=== PATIENT | female | born 1985 | race Hispanic/Latino ===

== ENCOUNTER 2021-03-18 02:06 | Emergency (ER) | payer SELFPAY | END 2021-03-18 07:00 | LOC: ED 02:06 | DX: R10.9 Unspecified abdominal pain (principal); Z53.21 Procedure and treatment not carried out due to patient leaving prior to being seen by health care provider ==

== ENCOUNTER 2021-08-21 19:34 | Emergency (ER) | payer SELFPAY ==
[2021-08-21 20:25] VITALS: BP 126/52
[2021-08-21 21:07] LABS: Bilirubin,Urine NEG (Negative); Blood,Urine MOD (Negative); Color,Urine Yellow (Yellow); Mucus,Urine FEW /HPF; Urobilinogen,Urine < 2.0 mg/dL (<2.0)
[2021-08-21 21:31] LABS: Basophils # (Auto) 0.1 K/mm3 (0.0-0.1); Basophils % (Auto) 1.1 % (0.0-1.8); Eosinophils # (Auto) 0.1 K/mm3 (0.0-0.4); Eosinophils % (Auto) 1.6 % (0.0-4.3); Hematocrit 40.3 % (30.3-42.9); Hemoglobin 13.3 gm/dl (10.1-14.3); Lymphocytes # (Auto) 3.3 K/mm3 (1.2-5.4); Lymphocytes % (Auto) 48.6 % (13.4-35.0); Mean Corpuscular HGB Conc 33 % (30-34); Mean Corpuscular Volume 84 fl (79-97); Monocytes # (Auto) 0.4 K/mm3 (0.0-0.8); Monocytes % (Auto) 5.8 % (0.0-7.3); Platelet Count 369 K/mm3 (140-440); Red Blood Count 4.79 M/mm3 (3.65-5.03); Red Cell Distribution Width 13.1 % (13.2-15.2)
[2021-08-21 21:47] LABS: Alanine Aminotransferase 37 units/L (7-56); Albumin 4.3 g/dL (3.9-5); BUN/Creatinine Ratio 14; Blood Urea Nitrogen 11 mg/dL (7-17); Calcium 9.7 mg/dL (8.4-10.2); Hemolysis Index 21
[2021-08-21] MEDS ORDERED: SODIUM CHLORIDE 0.9% 1000 ML 1,000 ML IV ONE (22:28)
--- NOTE | 2021-08-21 23:03 | XRay Report ---
XR abdomen 1V ap INDICATION / CLINICAL INFORMATION: constipation. COMPARISON: None available. TECHNIQUE: One view supine AP abdomen. FINDINGS: TUBES / LINES: None. BOWEL GAS PATTERN: No significant abnormality. FREE AIR / EXTRALUMINAL GAS: None seen. ADDITIONAL FINDINGS: Minimal scoliosis possibly positional apex to the right centered at L3. IMPRESSION: 1. No significant abnormality. Signer Name: Jose Pineda II, MD Signed: 08/21/2021 10:59 PM Workstation Name: [id number]
[2021-08-21] MEDS ORDERED: POTASSIUM CHLORIDE ER 20 MEQ TAB PO ONE (23:21)
[2021-08-21] MEDS ORDERED: FAMOTIDINE 20 MG TAB PO ONE (23:22)
[2021-08-21] MEDS ORDERED: ONDANSETRON 4 MG ODT TAB PO ONE (23:22)
--- NOTE | 2021-08-21 23:31 | Emergency Department Report ---
ED Abdominal Pain HPI - General Chief Complaint: Abdominal Pain Stated Complaint: ABD PAIN Source: patient Mode of arrival: Ambulatory Limitations: No Limitations - History of Present Illness Initial Comments: Patient is a 35-year-old female with no past medical history presents to the ED with complaint of acute onset persistent diffuse abdominal pain intermittently for the last 2 days. Patient states that she has not had a bowel movement about 3 or 4 days and that upon arrival in the ED she did have a bowel movement but still feels bloated, as if there is more abdominal gas in her abdomen. Patient denies dizziness, syncope, fever, chills, dysuria, urinary johana quency and urgency, chest pain or shortness of breath, cough, vaginal bleeding or vaginal discharge. MD Complaint: abdominal pain, other (Constipation) -: Sudden, hour(s) (12) Location: diffuse Radiation: none Migration to: no migration Severity: mild Severity scale (0 -10): 1 Quality: dull Consistency: intermittent Improves With: nothing Worsens With: nothing Associated Symptoms: denies other symptoms, nausea. denies: vomiting, diarrhea, fever, chills, dysuria, hematemesis, hematochezia, melena, anorexia, syncope, other - Related Data Previous Rx's Medication Instructions Recorded Last Taken Type Dicyclomine [Bentyl] 20 mg PO Q6H PRN #20 tablet 08/21/21 Unknown Rx Docusate Sodium [Dok] 100 mg PO DAILY #60 cap 08/21/21 Unknown Rx Famotidine [Pepcid] 20 mg PO BID #60 tablet 08/21/21 Unknown Rx Magnesium Citrate 296 ml PO ONCE #1 bottle 08/21/21 Unknown Rx Allergies Allergy/AdvReac Type Severity Reaction Status Date / Time No Known Allergies Allergy Verified 08/21/21 20:27 ED Review of Systems ROS: Stated complaint: ABD PAIN Other details as noted in HPI Constitutional: denies: chills, fever Eyes: denies: eye pain, eye discharge, vision change ENT: denies: ear pain, throat pain Respiratory: denies: cough, shortness of breath, wheezing Cardiovascular: denies: chest pain, palpitations Endocrine: no symptoms reported Gastrointestinal: abdominal pain, nausea. denies: vomiting, diarrhea Genitourinary: denies: urgency, dysuria, discharge Musculoskeletal: denies: back pain, joint swelling, arthralgia Skin: denies: rash, lesions Neurological: denies: headache, weakness, paresthesias Psychiatric: denies: anxiety, depression Hematological/Lymphatic: denies: easy bleeding, easy bruising ED Past Medical Hx - Medications Home Medications: Home Medications Medication Instructions Recorded Confirmed Last Taken Type Dicyclomine [Bentyl] 20 mg PO Q6H PRN #20 tablet 08/21/21 Unknown Rx Docusate Sodium [Dok] 100 mg PO DAILY #60 cap 08/21/21 Unknown Rx Famotidine [Pepcid] 20 mg PO BID #60 tablet 08/21/21 Unknown Rx Magnesium Citrate 296 ml PO ONCE #1 bottle 08/21/21 Unknown Rx ED Physical Exam - General Limitations: No Limitations General appearance: alert, in no apparent distress - Head Head exam: Present: atraumatic, normocephalic, normal inspection - Eye Eye exam: Present: normal appearance, PERRL, EOMI Pupils: Present: normal accommodation - ENT ENT exam: Present: normal exam, normal orophraynx, mucous membranes moist, TM's normal bilaterally, normal external ear exam - Neck Neck exam: Present: normal inspection, full ROM. Absent: tenderness - Respiratory Respiratory exam: Present: normal lung sounds bilaterally. Absent: respiratory distress, wheezes, rales, rhonchi, chest wall tenderness, accessory muscle use, decreased breath sounds, prolonged expiratory - Cardiovascular Cardiovascular Exam: Present: regular rate, normal rhythm, normal heart sounds. Absent: systolic murmur, diastolic murmur, rubs, gallop - GI/Abdominal GI/Abdominal exam: Present: soft, normal bowel sounds. Absent: distended, tenderness, guarding, rebound, hyperactive bowel sounds, hypoactive bowel sounds, organomegaly - Extremities Exam Extremities exam: Present: normal inspection, full ROM, normal capillary refill. Absent: tenderness - Back Exam Back exam: Present: normal inspection, full ROM. Absent: tenderness, CVA tenderness (R), CVA tenderness (L), muscle spasm, paraspinal tenderness, vertebral tenderness - Neurological Exam Neurological exam: Present: alert, oriented X3, CN II-XII intact, normal gait, reflexes normal - Psychiatric Psychiatric exam: Present: normal affect, normal mood. Absent: depressed, agitated, anxious, flat affect, manic, homicidal ideation - Skin Skin exam: Present: warm, dry, intact, normal color. Absent: rash ED Course Vital Signs 08/21/21 20:08 Temperature 97.8 F Pulse Rate 87 Respiratory 18 Rate Blood Pressure 126/52 O2 Sat by Pulse 100 Oximetry ED Medical Decision Making - Lab Data Result diagrams: 08/21/21 21:09 08/21/21 21:09 - Radiology Data [facility] [address] [place] [address] XRay Report Signed Patient: SANDI COLLINS MR#: [id number] : 1985 Acct:[id number] Age/Sex: 35 / F ADM Date: 08/21/21 Loc: ED Attending Dr: Ordering Physician: RICARDO MOON Date of Service: 08/21/21 Procedure(s): XR abdomen 1V ap Accession Number(s): [id number] cc: RICARDO MOON Fluoro Time In Minutes: XR abdomen 1V ap INDICATION / CLINICAL INFORMATION: constipation. COMPARISON: None available. TECHNIQUE: One view supine AP abdomen. FINDINGS: TUBES / LINES: None. BOWEL GAS PATTERN: No significant abnormality. FREE AIR / EXTRALUMINAL GAS: None seen. ADDITIONAL FINDINGS: Minimal scoliosis possibly positional apex to the right centered at L3. IMPRESSION: 1. No significant abnormality. Signer Name: Carina Pineda II, MD Signed: 08/21/2021 10:59 PM Workstation Name: [id number] Transcribed By: GINNA Dictated By: CARINA PINEDA II, MD Electronically Authenticated By: CARINA PINEDA II, MD Signed Date/Time: 08/21/212258 DD/ 57 TD/TT: Print - Medical Decision Making This is a 35-year-old female with no past medical history presents to the ED with complaint of acute onset persistent diffuse abdominal pain intermittently for the last 2 days. Patient states that she has not had a bowel movement about 3 or 4 days and that upon arrival in the ED she did have a bowel movement but still feels bloated, as if there is more abdominal gas in her abdomen. In the ED, patient is alert and oriented x3 and is not in any distress. Patient is hemodynamically stable. All lab test results were reviewed and are all nonactionable except for mild hypokalemia of 3.3 mmol/L. Abdomen KUB x-ray showed moderate colonic stool with nonspecific gas patterns. Patient was treated in the ED normal saline 1 L IV bolus x1 as well as potassium 40 mEq p.o. x1. Patient was discharged home on medications and advised to foll ow-up with her primary care physician in 7 to 10 days for reevaluation or return to the ED immediately if symptoms get worse. - Differential Diagnosis Constipation; GERD; UTI; Critical care attestation.: If time is entered above; I have spent that time in minutes in the direct care of this critically ill patient, excluding procedure time. ED Disposition Clinical Impression: Abdominal pain in female patient Constipation Qualifiers: Constipation type: other constipation type Qualified Code(s): K59.09 - Other constipation GERD (gastroesophageal reflux disease) Qualifiers: Esophagitis presence: esophagitis presence not specified Qualified Code(s): K21.9 - Gastro-esophageal reflux disease without esophagitis Disposition: HOME / SELF CARE / HOMELESS Is pt being admited?: No Does the pt Need Aspirin: No Condition: Stable Instructions: Abdominal Pain (ED), Abdominal Pain, Adult, [id number], Constipation, Adult, [id number], Gastroesophageal Reflux Disease, Adult, [id number] Additional Instructions: All lab test results were reviewed and are all nonactionable. Therefore take medication as needed for acid reflux, and constipation as advised. Return to the ED immediately if symptoms get worse. Otherwise follow-up with your primary care physician in 7 to 10 days for reevaluation. Prescriptions: Dicyclomine [Bentyl] 20 mg PO Q6H PRN #20 tablet PRN Reason: Abdominal pain Docusate Sodium [Dok] 100 mg PO DAILY #60 cap Magnesium Citrate 296 ml PO ONCE #1 bottle Famotidine [Pepcid] 20 mg PO BID #60 tablet Referrals: [facility] [Provider Group] - 7-10 days Time of Disposition: 23:37 Print Language: MACEDONIAN
== END 2021-08-22 00:17 | disposition home or self-care (01) ==
LOC: ED 19:34
DX: R10.9 Unspecified abdominal pain (principal); K59.09 Other constipation; K21.9 Gastro-esophageal reflux disease without esophagitis
CPT/HCPCS: 36415; 74018; 80053; 81001; 85025; 96360; 99284; J7030; J3490; Q0162